=== PATIENT | female | born 1975 | race Caucasian/White ===

== ENCOUNTER 2020-04-27 14:12 | Emergency (ER) | payer MEDICAID ==
[~2020-04-27] VITALS: Ht 175.3 cm; Wt 77.1 kg
[2020-04-27 14:15] VITALS: BP_SYST 145
[2020-04-27 15:21] VITALS: BP_SYST 134
== END 2020-04-27 15:20 | disposition home or self-care (01) ==
LOC: SED 14:12
DX: S63.591A Other specified sprain of right wrist, initial encounter (principal); J45.909 Unspecified asthma, uncomplicated; V00.121A Fall from non-in-line roller-skates, initial encounter; Y93.51 Activity, roller skating (inline) and skateboarding; Y92.89 Other specified places as the place of occurrence of the external cause; Y99.8 Other external cause status
CPT/HCPCS: 99283

== ENCOUNTER 2021-08-01 20:06 | Emergency (ER) | payer MEDICAID ==
[~2021-08-01] VITALS: Ht 175.3 cm; Wt 70.3 kg
[2021-08-01 20:49] VITALS: BP_SYST 144
--- NOTE | 2021-08-01 20:53 | NUR ---
Patient to ER bed 05 to gown for evaluation. Side rails up. Report given to ANGELICA Juarez
--- NOTE | 2021-08-01 21:00 | NUR ---
Pt came from home due to left sided abdominal pain radiating to back x3 weeks. States she has seen her PCP and was told to follow up if symptoms persisted; today pain worsened. Arrived to ED in no acute distress. Breathing adequately on RA. at bedside.
--- NOTE | 2021-08-01 21:10 | NUR ---
ER Dr. Henry at bedside examining patient.
--- NOTE | 2021-08-01 21:14 | NUR ---
PT TAKEN TO CT FOR IMAGING. Addendum: 08/01/21 at 2115 by [id number] ANGELICA Juarez
--- NOTE | 2021-08-01 21:30 | NUR ---
Urine specimen collected and sent to lab.
[2021-08-01 21:44] LABS: BASOPHILS # (AUTO) 0.1 K/uL (0.0-0.2); BASOPHILS % (AUTO) 0.8 % (0.0-2.0); EOSINOPHILS # (AUTO) 0.3 K/uL (0.0-0.4); EOSINOPHILS % (AUTO) 3.1 % (0.0-4.0); HEMATOCRIT 37.3 % (36-48); HEMOGLOBIN 12.4 g/dL (12.0-16.0); LYMPHOCYTES # (AUTO) 2.7 K/uL (1.0-5.5); LYMPHOCYTES % (AUTO) 31.8 % (20.5-51.5); MEAN CORPUSCULAR HEMOGLOBIN 31 pg (27-31); MEAN CORPUSCULAR HGB CONC 33 % (32-36); MEAN CORPUSCULAR VOLUME 94 fL (79.0-98.0); MONOCYTES # (AUTO) 0.6 K/uL (0.0-1.0); MONOCYTES % (AUTO) 7.3 % (1.7-9.3); NEUTROPHILS # (AUTO) 4.8 K/uL (1.8-7.7); PLATELET COUNT (AUTO) 219 K/uL (130-430); RED BLOOD CELL COUNT(AUTO) 3.98 MIL/uL (4.2-6.2); RED CELL DISTRIBUTION WIDTH 12.9 % (9.0-15.0); WHITE BLOOD COUNT (AUTO) 8.4 K/uL (4.8-10.8)
[2021-08-01] MEDS ORDERED: KETOROLAC TROMETHAMINE 30 MG VIAL IM ONE (21:45)
[2021-08-01 22:03] LABS: CALCIUM 8.6 mg/dL (8.4-11.0); CREATININE 0.66 mg/dL (0.55-1.30); POTASSIUM 3.7 mmol/L (3.5-5.1)
[2021-08-01 22:09] LABS: ALBUMIN 3.8 g/dL (3.4-4.8); TOTAL BILIRUBIN 0.2 mg/dL (0.0-1.0)
[2021-08-01 22:31] LABS: BILIRUBIN,URINE NEGATIVE (NEGATIVE); BLOOD, URINE NEGATIVE (NEGATIVE); CLARITY/URINE CLEAR (CLEAR); GLUCOSE,URINE NEGATIVE (NEGATIVE); KETONES,URINE NEGATIVE (NEGATIVE); LEUKOCYTE ESTERASE ,URINE NEGATIVE (NEGATIVE); NITRITE, URINE NEGATIVE (NEGATIVE); PROTEIN URINE NEGATIVE (NEGATIVE); UROBILINOGEN,URINE 0.2 (0.2-1.0)
[2021-08-01 22:33] LABS: COLOR,URINE STRAW (YELLOW)
--- NOTE | 2021-08-02 00:18 | NUR ---
Patient given written and verbal discharge instructions and verbalizes understanding. ER MD discussed with patient the results and treatment provided. Patient in stable condition. ID arm band removed. Patient educated on pain management and to follow up with PMD. Pain Scale 0/10 Opportunity for questions provided and answered.
[2021-08-02 00:20] VITALS: BP_SYST 122
== END 2021-08-02 00:18 | disposition home or self-care (01) ==
LOC: SED 20:06
DX: K57.90 Diverticulosis of intestine, part unspecified, without perforation or abscess without bleeding (principal); N83.202 Unspecified ovarian cyst, left side; K59.00 Constipation, unspecified; R10.32 Left lower quadrant pain; R03.0 Elevated blood-pressure reading, without diagnosis of hypertension; R16.0 Hepatomegaly, not elsewhere classified
CPT/HCPCS: 36415; 74176; 76376; 80053; 81003; 81025; 83690; 85025; 96372; 99284; J1885